=== PATIENT | female | born 1940 | race Caucasian/White ===

== ENCOUNTER 2017-12-29 13:15 | Inpatient (IN) | payer MEDICARE, MEDICAID ==
[~2017-12-29] VITALS: Ht 167.6 cm; Wt 75.5 kg
[2017-12-29] MEDS ORDERED: SODIUM CHLORIDE 0.9% 1,000 ML IV ONE ×2 (13:21→21:30)
[2017-12-29] MEDS ORDERED: SODIUM CHLORIDE 0.9% 500 ML IVB ONE (13:21)
[2017-12-29] MEDS ORDERED: PROMETHAZINE HCL 25 MG/ML 1ML IV PRN (13:30)
[2017-12-29 15:31] LABS: Basophils # (auto) 0.1 uL; Basophils % (auto) 0.6 % (0.0-2.0); Eosinophils # (auto) 0 uL; Hematocrit 43.5 % (36.0-46.0); Hemoglobin 14.6 g/dL (12.2-16.2); Lymphocytes # (auto) 0.4 uL; Lymphocytes % (auto) 2.8 % (10.0-50.0); Mean Corpuscular Hemoglobin 30.2 pg (28.0-32.0); Mean Corpuscular Hgb Conc. 33.6 g/dL (32.0-36.0); Mean Corpuscular Volume 89.9 fL (80.0-100.0); Monocytes # (auto) 1.2 uL; Monocytes % (auto) 7.7 % (0.0-12.0); Neutrophils # (auto) 13.3 uL; Neutrophils % (auto) 88.9 % (37.0-80.0); Nucleated Red Blood Cells % 0.1 %; Platelet Count (auto) 366 10^3/uL (140-450); Red Blood Cells 4.84 10^6/uL (4.0-5.20)
[2017-12-29 15:54] LABS: Albumin 3.3 g/dL (3.4-5.0); BUN/Creatinine Ratio 28.6; Bilirubin, Total 5.7 mg/dL (0.2-1.0); Calcium 9.4 mg/dL (8.5-10.1); Magnesium 2.7 mg/dL (1.6-2.6); Potassium 4.2 mmol/L (3.5-5.1); Total Protein 7.6 g/dL (6.4-8.2)
[2017-12-29 16:30] LABS: Urine Bacteria NONE SEEN /hpf (None Seen); Urine Blood Negative /uL (Negative); Urine Mucus FEW (None Seen); Urine Specific Gravity 1.024 (1.001-1.035); Urine WBC 4 /hpf (0 - 5)
[2017-12-29] MEDS ORDERED: cefTRIAXone 1GM/10ml IVPUSH 10 ML IV ONE (18:00)
[2017-12-29] MEDS ORDERED: MORPHINE SULF INJ 2 MG/ML SYRINGE 1ML IV ONE (18:45)
[2017-12-29] MEDS ORDERED: PROMETHAZINE HCL 25 MG/ML 1ML IV ONE (18:45)
[2017-12-29] MEDS ORDERED: ONDANSETRON HCL 4 MG/2 ML VIAL IV PRN (21:30)
[2017-12-29] MEDS ORDERED: MORPHINE SULF INJ 2 MG/ML SYRINGE 1ML IV PRN (21:30)
[2017-12-29 22:55] VITALS: BP 115/54
[2017-12-30] MEDS ORDERED: TEMAZEPAM 15 MG CAP PO PRN (00:45)
[2017-12-30 05:07] VITALS: BP 96/54
[2017-12-30] MEDS: IBUPROFEN 400 MG TAB PO PRN ×2 (05:53→22:01)
[2017-12-30 08:44] LABS: Basophils # (auto) 0.1 uL; Basophils % (auto) 0.9 % (0.0-2.0); Eosinophils # (auto) 0.1 uL; Eosinophils % (auto) 0.7 % (0.0-7.0); Hematocrit 35.2 % (36.0-46.0); Hemoglobin 11.9 g/dL (12.2-16.2); Lymphocytes # (auto) 1.4 uL; Lymphocytes % (auto) 16.3 % (10.0-50.0); Mean Corpuscular Hemoglobin 30.5 pg (28.0-32.0); Mean Corpuscular Hgb Conc. 33.8 g/dL (32.0-36.0); Mean Corpuscular Volume 90.2 fL (80.0-100.0); Monocytes # (auto) 0.9 uL; Monocytes % (auto) 10.1 % (0.0-12.0); Neutrophils # (auto) 6.3 uL; Platelet Count (auto) 240 10^3/uL (140-450); Red Cell Distribution Width 14.9 % (11.8-14.3); White Blood Cell 8.8 10^3/uL (4.4-10.8)
[2017-12-30 09:00] VITALS: BP 128/56
[2017-12-30 09:07] LABS: Albumin 2.7 g/dL (3.4-5.0); BUN/Creatinine Ratio 35.9; Bilirubin, Total 4.5 mg/dL (0.2-1.0); Calcium 8.2 mg/dL (8.5-10.1); Potassium 3.3 mmol/L (3.5-5.1)
[2017-12-30] MEDS: PANTOPRAZOLE 40 MG/10 ML VIAL IV SCH (09:49)
[2017-12-30 12:30] VITALS: BP 112/65
[2017-12-30] MEDS: MEROPENEM 1gm/20ml IVPUSH 20 ML IV SCH ×2 (15:17→21:47)
[2017-12-30 17:17] VITALS: BP 127/61
[2017-12-30] MEDS ORDERED: cefTRIAXone 1GM/10ml IVPUSH 10 ML IV SCH (21:00)
[2017-12-30 22:00] VITALS: BP 128/64
[2017-12-31] MEDS ORDERED: CHOL20007 PO (00:09)
[2017-12-31] MEDS ORDERED: TRIA75TA55 PO (00:09)
[2017-12-31] MEDS ORDERED: OMEP20TA PO (00:09)
[2017-12-31] MEDS ORDERED: IBUP100S11 PO (00:11)
[2017-12-31 05:00] VITALS: BP 101/59
[2017-12-31 08:30] VITALS: BP 120/69
[2017-12-31] MEDS: PANTOPRAZOLE 40 MG/10 ML VIAL IV SCH (09:35)
[2017-12-31] MEDS: MEROPENEM 1gm/20ml IVPUSH 20 ML IV SCH ×2 (09:35→22:04)
[2017-12-31 12:30] VITALS: BP 118/65
[2017-12-31 16:29] VITALS: BP 117/60
[2017-12-31] MEDS: IBUPROFEN 400 MG TAB PO PRN (18:05)
[2017-12-31 22:00] VITALS: BP 116/59
[2018-01-01] MEDS: IBUPROFEN 400 MG TAB PO PRN ×2 (00:07→15:05)
[2018-01-01 05:00] VITALS: BP 110/53
[2018-01-01 07:28] LABS: Basophils # (auto) 0.1 uL; Basophils % (auto) 1.5 % (0.0-2.0); Eosinophils # (auto) 0.1 uL; Eosinophils % (auto) 3.1 % (0.0-7.0); Hematocrit 34.2 % (36.0-46.0); Hemoglobin 11.5 g/dL (12.2-16.2); Lymphocytes # (auto) 1.9 uL; Lymphocytes % (auto) 42.2 % (10.0-50.0); Mean Corpuscular Hemoglobin 30.5 pg (28.0-32.0); Mean Corpuscular Hgb Conc. 33.7 g/dL (32.0-36.0); Mean Corpuscular Volume 90.4 fL (80.0-100.0); Monocytes # (auto) 0.5 uL; Monocytes % (auto) 10.6 % (0.0-12.0); Neutrophils # (auto) 1.9 uL; Neutrophils % (auto) 42.6 % (37.0-80.0); Nucleated Red Blood Cells % 0.2 %; Platelet Count (auto) 259 10^3/uL (140-450); Red Blood Cells 3.79 10^6/uL (4.0-5.20); Red Cell Distribution Width 15.1 % (11.8-14.3); White Blood Cell 4.5 10^3/uL (4.4-10.8)
[2018-01-01 07:55] LABS: Albumin 2.4 g/dL (3.4-5.0); BUN/Creatinine Ratio 31.5; Bilirubin, Total 1.3 mg/dL (0.2-1.0); Calcium 8.2 mg/dL (8.5-10.1); Potassium 3.5 mmol/L (3.5-5.1); Total Protein 5.6 g/dL (6.4-8.2)
[2018-01-01 09:00] VITALS: BP 125/66
[2018-01-01] MEDS: MEROPENEM 1gm/20ml IVPUSH 20 ML IV SCH (10:18)
[2018-01-01] MEDS: PANTOPRAZOLE 40 MG/10 ML VIAL IV SCH (10:18)
[2018-01-01] MEDS ORDERED: LACTULOSE 20Gm/30ML SOLN PO ONE (11:00)
[2018-01-01 13:00] VITALS: BP 130/70
[2018-01-01 17:00] VITALS: BP 124/48
== END 2018-01-01 18:00 | disposition home or self-care (01) | DRG 720 ==
LOC: EDUNIT# 13:15 → EDBD 13:15 → ER 13:25 → OVERFLOW 13:26 → EAST 22:55
PROVIDERS: ADMIT Nurse Practitioner Family; ATTEND Family Medicine
DX: A41.9 Sepsis, unspecified organism (principal); E11.65 Type 2 diabetes mellitus with hyperglycemia; K76.89 Other specified diseases of liver; E87.1 Hypo-osmolality and hyponatremia; N39.0 Urinary tract infection, site not specified; Z88.3 Allergy status to other anti-infective agents; E44.1 Mild protein-calorie malnutrition; Z88.0 Allergy status to penicillin; Z88.2 Allergy status to sulfonamides; Z88.8 Allergy status to other drugs, medicaments and biological substances; K21.9 Gastro-esophageal reflux disease without esophagitis; Z90.49 Acquired absence of other specified parts of digestive tract; E89.0 Postprocedural hypothyroidism; K86.9 Disease of pancreas, unspecified; N28.1 Cyst of kidney, acquired; N83.8 Other noninflammatory disorders of ovary, fallopian tube and broad ligament; Z87.891 Personal history of nicotine dependence; Z68.26 Body mass index [BMI] 26.0-26.9, adult
CPT/HCPCS: 36415; 71046; 74176; 76856; 80053; 81001; 82378; 83036; 83690; 83735; 84443; 85025; 86301; 87040; 87077; 87086; 87186; 93005; 96361; 96374; 96375; 96379; C9113; J0696

== ENCOUNTER 2018-07-15 15:27 | Inpatient (IN) | payer MEDICARE, MEDICAID ==
[~2018-07-15] VITALS: Ht 170.2 cm; Wt 54.4 kg
[~2018-07-15 15:27] MED LIST: CHOL20007 PO; DIPH50TA9 PO; DOCU-94 PO; HYDR-4683 PO; HYDR2.5C39 RE; IBUP100S11 PO; METO5TAB2 PO; OMEP20TA PO; ONDA4TAB5 PO; POM PO; SIME80CH6 PO; TRIA75TA55 PO
[2018-07-15] MEDS ORDERED: SODIUM CHLORIDE 0.9% 500 ML IVB ONE (15:39)
[2018-07-15 16:49] LABS: Basophils # (auto) 0.1 uL; Basophils % (auto) 0.7 % (0.0-2.0); Eosinophils # (auto) 0 uL; Eosinophils % (auto) 0.1 % (0.0-7.0); Hematocrit 37.5 % (36.0-46.0); Hemoglobin 12.7 g/dL (12.2-16.2); Lymphocytes % (auto) 11.3 % (10.0-50.0); Mean Corpuscular Hemoglobin 28.9 pg (28.0-32.0); Mean Corpuscular Hgb Conc. 33.9 g/dL (32.0-36.0); Mean Corpuscular Volume 85.2 fL (80.0-100.0); Monocytes # (auto) 0.7 uL; Monocytes % (auto) 7.2 % (0.0-12.0); Neutrophils # (auto) 7.5 uL; Neutrophils % (auto) 80.7 % (37.0-80.0); Nucleated Red Blood Cells % 0.1 %; Platelet Count (auto) 241 10^3/uL (140-450); Red Cell Distribution Width 15.5 % (11.8-14.3); White Blood Cell 9.2 10^3/uL (4.4-10.8)
[2018-07-15 17:05] LABS: Albumin 2.8 g/dL (3.4-5.0); Anion Gap 18 (5-15); Blood Urea Nitrogen 20 mg/dL (7-18); Calcium 8.3 mg/dL (8.5-10.1); Carbon Dioxide 25 mmol/L (21-32); Chloride 98 mmol/L (98-107); Glucose 156 mg/dL (74-106); Lipase 41 U/L (73-393); Magnesium 2.3 mg/dL (1.6-2.6); Sodium 141 mmol/L (136-145)
[2018-07-15 17:07] LABS: Alanine Aminotransferase 9 U/L (13-56); Amylase 11 U/L (25-115); Aspartate Aminotransferase 16 U/L (15-37); BUN/Creatinine Ratio 30.3; GFR African American 111 mL/min; GFR Non-African American 92 mL/min
[2018-07-15 17:10] LABS: Alkaline Phosphatase 101 U/L (45-117); Bilirubin, Total 1.2 mg/dL (0.2-1.0); Total Protein 5.8 g/dL (6.4-8.2)
[2018-07-15 17:20] LABS: Potassium 2.9 mmol/L (3.5-5.1)
[2018-07-15] MEDS ORDERED: POTASSIUM CHL 20MEQ/100ML 100 ML IV ONE ×2 (18:30→21:00)
[2018-07-15] MEDS ORDERED: ONDANSETRON HCL 4 MG/2 ML VIAL ONE (20:37)
[2018-07-15] MEDS ORDERED: ONDANSETRON HCL 4 MG/2 ML VIAL IV ONE (20:45)
[2018-07-15] MEDS ORDERED: ONDANSETRON HCL 4 MG/2 ML VIAL IV PRN (21:00)
[2018-07-15] MEDS ORDERED: ACETAMINOPHEN 500 MG TAB PO PRN (21:00)
[2018-07-15] MEDS ORDERED: LORazepam 2MG/ML-1ML VIAL IV PRN (21:30)
[2018-07-15] MEDS: SODIUM CHLORIDE 0.9% 1,000 ML IV SCH (22:30)
[2018-07-15] MEDS: MORPHINE SULFATE 4 MG/ML SYR/VIAL IV PRN (22:44)
[2018-07-16] MEDS ORDERED: PROMETHAZINE HCL 25 MG/ML 1ML ONE (00:32)
[2018-07-16] MEDS: PROMETHAZINE HCL 25 MG/ML 1ML IV PRN ×3 (04:19→17:47)
[2018-07-16 05:50] LABS: Basophils # (auto) 0 uL; Basophils % (auto) 0.7 % (0.0-2.0); Eosinophils # (auto) 0 uL; Eosinophils % (auto) 0.2 % (0.0-7.0); Hematocrit 30.9 % (36.0-46.0); Hemoglobin 10.8 g/dL (12.2-16.2); Lymphocytes % (auto) 14.5 % (10.0-50.0); Mean Corpuscular Hemoglobin 29.5 pg (28.0-32.0); Mean Corpuscular Hgb Conc. 34.8 g/dL (32.0-36.0); Mean Corpuscular Volume 84.8 fL (80.0-100.0); Monocytes # (auto) 0.6 uL; Monocytes % (auto) 8.1 % (0.0-12.0); Neutrophils # (auto) 5.2 uL; Neutrophils % (auto) 76.5 % (37.0-80.0); Nucleated Red Blood Cells % 0.1 %; Platelet Count (auto) 188 10^3/uL (140-450); Red Blood Cells 3.64 10^6/uL (4.0-5.20); Red Cell Distribution Width 15.4 % (11.8-14.3); White Blood Cell 6.9 10^3/uL (4.4-10.8)
[2018-07-16 05:58] LABS: BUN/Creatinine Ratio 36.4; Calcium 7.8 mg/dL (8.5-10.1)
[2018-07-16 06:00] LABS: Potassium 2.9 mmol/L (3.5-5.1)
[2018-07-16] MEDS: SODIUM CHLORIDE 0.9% 1,000 ML IV SCH ×2 (07:24→17:00)
[2018-07-16] MEDS: PANTOPRAZOLE 40 MG/10 ML VIAL IV SCH (10:05)
[2018-07-16] MEDS: MORPHINE SULFATE 4 MG/ML SYR/VIAL IV PRN ×2 (10:06→17:47)
[2018-07-16] MEDS ORDERED: POTASSIUM CHLORIDE 20 MEQ, LIDOCAINE 1% (LOCAL ANESTH.) 2 ML in SODIUM CHL 0.9% 100 ML IV ONE (16:45)
[2018-07-16 16:48] LABS: Urine Bacteria NONE SEEN /hpf (None Seen); Urine Blood Negative /uL (Negative); Urine Mucus FEW (None Seen); Urine Specific Gravity 1.017 (1.001-1.035); Urine WBC 3 /hpf (0 - 5)
[2018-07-16] MEDS: methylPREDNISolone SOD SUCC 40 MG/ML VL IV SCH (18:26)
--- NOTE | 2018-07-16 20:30 | NUR ---
OPENING NOTES RECEIVED REPORT FROM ER NURSE. PT IS AWAKE AND ORIENTATED X 4 WITH NO S/S OF DISTRESS BUT PT IS NAUSEATED. IS AT BS. BED IS IN LOWEST POSITION WITH SIDE RAILS UP X 2 AND BED BRAKES ARE ON. CALL LIGHT IS WITHIN REACH. WILL CONTINUE TO MONITOR Q 1HR.
--- NOTE | 2018-07-16 20:40 | NUR ---
MED REC UNABLE TO OBTAIN ACCURATE MED REC AT THIS TIME, PATIENT DOES NOT REMEMBER HER MEDICATION NOR DOES . ADVISED TO BRING IN A LIST OF MEDICATION TAKEN AT HOME. VERBALIZED UNDERSTANDING, WILL BRING IN TOMORROW. WILL ENDORSE TO DAY SHIFT.
[2018-07-16 22:00] VITALS: BP 134/47
[2018-07-17] MEDS: methylPREDNISolone SOD SUCC 40 MG/ML VL IV SCH ×4 (00:51→18:36)
[2018-07-17] MEDS: SODIUM CHLORIDE 0.9% 1,000 ML IV SCH ×3 (02:54→20:27)
[2018-07-17 05:00] VITALS: BP 135/70
--- NOTE | 2018-07-17 07:29 | NUR ---
CLOSING NOTES ENDORSED CARE TO DAY SHIFT RNBIRDIE.
[2018-07-17 07:35] LABS: Basophils # (auto) 0 uL; Basophils % (auto) 0.2 % (0.0-2.0); Eosinophils # (auto) 0 uL; Hematocrit 30.8 % (36.0-46.0); Hemoglobin 10.5 g/dL (12.2-16.2); Lymphocytes # (auto) 0.3 uL; Lymphocytes % (auto) 7.8 % (10.0-50.0); Mean Corpuscular Hgb Conc. 34.1 g/dL (32.0-36.0); Mean Corpuscular Volume 84.9 fL (80.0-100.0); Monocytes # (auto) 0 uL; Monocytes % (auto) 1.2 % (0.0-12.0); Neutrophils # (auto) 3.5 uL; Neutrophils % (auto) 90.8 % (37.0-80.0); Nucleated Red Blood Cells % 0.1 %; Platelet Count (auto) 151 10^3/uL (140-450); Red Blood Cells 3.62 10^6/uL (4.0-5.20); Red Cell Distribution Width 15.2 % (11.8-14.3); White Blood Cell 3.9 10^3/uL (4.4-10.8)
[2018-07-17 07:53] LABS: BUN/Creatinine Ratio 31.3; Calcium 7.4 mg/dL (8.5-10.1); Potassium 3.2 mmol/L (3.5-5.1)
--- NOTE | 2018-07-17 07:55 | NUR ---
Opening Shift Note Assumed care of patient, comfortably sleeping, breath sounds even and unlabored. No S/S of distress/SOB. Bed at lowest position and call light within reach. Instructed on POC and to call for assist PRN, will continue to monitor for changes Q1hr and PRN.
[2018-07-17 08:00] VITALS: BP 132/68
[2018-07-17 09:00] VITALS: BP 132/68
[2018-07-17] MEDS ORDERED: POTASSIUM CHLORIDE 20 MEQ, LIDOCAINE 1% (LOCAL ANESTH.) 2 ML in SODIUM CHL 0.9% 100 ML IV ONE (10:45)
[2018-07-17] MEDS: PANTOPRAZOLE 40 MG/10 ML VIAL IV SCH (10:52)
[2018-07-17] MEDS: MORPHINE SULFATE 4 MG/ML SYR/VIAL IV PRN ×3 (11:30→22:10)
--- NOTE | 2018-07-17 11:43 | NUR ---
Nutrition Assessment/consult Notes Please see attached link for complete assessment Est. Needs IBW [id number] kcal (25-30 kcal/kgIBW), 61-73 gms pro (1.0-1.2 gms/kgBW). Will continue to monitor pertinent labs and reassess nutrient need prn Addendum: 07/17/18 at [address] Amended: Links added.
[2018-07-17 13:06] VITALS: BP 142/76
[2018-07-17] MEDS: ONDANSETRON ODT 4 MG TAB PO SCH ×3 (14:13→20:26)
[2018-07-17] MEDS: METOCLOPRAMIDE HCL 10 MG TAB PO SCH ×3 (14:14→20:26)
--- NOTE | 2018-07-17 14:41 | NUR ---
ORDER AND CLINICALS FAXED TO [facility] FOR REVIEW.
--- NOTE | 2018-07-17 16:43 | NUR ---
assessment Patient is a 78 year old female who is alert and oriented. Patients cognitive abilities are intact. Prior to admission patient lived home with her Miguel Ángel and functioned with assistance. Per patient she will return home to her prior living arrangements post discharge and family will transport her home. Patient has a fww, cane, and wheelchair for home use. Patients PCP is Dr Estevez. I informed patient she has a right to speak to a medical social consultant regarding all care. I informed patient she has a right to participate in any and all discharge planning. Patient is aware of visiting hours on the hospital floor. I informed patient she has a right to privacy. Patient does not have a POA and advanced directive. I have offered patient information on POA and advanced directives. I informed the patient the advantages and benefits of having an Advanced Directive. Patient verbalized understanding and agreed to discharge plan. Per consult hospice evaluation. Patient and her Miguel Ángel have refused hospice and want home health. Per consult PT vitals, and med management. Patient has been given a list of medicare providers. Patient has no preference on who provides service. MD order has been sent to [facility]. Per Kennedy rebollar [facility] service will start within 48 hours of discharge. Addendum: 07/19/18 at 1648 by Monserrat CHAKRABORTY Amended: Links added.
[2018-07-17 17:00] VITALS: BP 130/68
--- NOTE | 2018-07-17 17:00 | NUR ---
Patient is requesting Zofran and Reglan medications IV. Patient states " i cant keep them down" Will page .
--- NOTE | 2018-07-17 18:51 | NUR ---
closing note: Patient is comfortably resting in bed, no c/o pain, SOB. No s/s of distress. Bed at lowest position and call light within reach. Family at bedside. Will endorse care to NOC RN.
--- NOTE | 2018-07-17 20:10 | NUR ---
RECEIVED PATIENT IN BED, AAOX4. NO DISTRESS NOTED. AFEBRILE. NAUSEA/VOMITING NOTED. IS IN THE ROOM. WITH MILD BLE WEAKNESS NOTED. POCS DISCUSSED WITH PATIENT AND SHOWED UNDERSTANDING. BED KEPT ON LOWEST POSITION. SIDE RAILS UP. CALL LIGHT/TABLE IN REACH. KEPT COMFORTABLE.
[2018-07-17] MEDS: PROMETHAZINE HCL 25 MG/ML 1ML IV PRN (20:45)
[2018-07-17 21:30] VITALS: BP 136/67
[2018-07-17] MEDS: ENSURE CLEAR Mixed Berry 8oz Carton PO SCH (21:30)
[2018-07-18 05:00] VITALS: BP 139/68
[2018-07-18] MEDS: ENSURE CLEAR Mixed Berry 8oz Carton PO SCH ×4 (05:26→21:39)
[2018-07-18] MEDS: methylPREDNISolone SOD SUCC 40 MG/ML VL IV SCH ×4 (05:26→20:07)
[2018-07-18] MEDS: METOCLOPRAMIDE HCL 10 MG TAB PO SCH ×4 (05:27→21:40)
[2018-07-18] MEDS: ONDANSETRON ODT 4 MG TAB PO SCH ×4 (05:27→21:41)
[2018-07-18] MEDS: MORPHINE SULFATE 4 MG/ML SYR/VIAL IV PRN ×2 (06:01→10:22)
[2018-07-18] MEDS: PROMETHAZINE HCL 25 MG/ML 1ML IV PRN ×2 (06:01→10:23)
--- NOTE | 2018-07-18 06:46 | NUR ---
ON BED, ASLEEP. STABLE. NO DISTRESS NOTED. FOR MORE CARE AND MANAGEMENT.
[2018-07-18 07:10] LABS: Basophils # (auto) 0 uL; Basophils % (auto) 0.1 % (0.0-2.0); Eosinophils # (auto) 0 uL; Hematocrit 30.7 % (36.0-46.0); Hemoglobin 10.5 g/dL (12.2-16.2); Lymphocytes # (auto) 0.6 uL; Lymphocytes % (auto) 9.1 % (10.0-50.0); Mean Corpuscular Hemoglobin 28.9 pg (28.0-32.0); Mean Corpuscular Hgb Conc. 34.3 g/dL (32.0-36.0); Mean Corpuscular Volume 84.2 fL (80.0-100.0); Monocytes # (auto) 0.2 uL; Monocytes % (auto) 2.6 % (0.0-12.0); Neutrophils # (auto) 5.7 uL; Neutrophils % (auto) 88.2 % (37.0-80.0); Nucleated Red Blood Cells % 0.2 %; Platelet Count (auto) 171 10^3/uL (140-450); Red Blood Cells 3.64 10^6/uL (4.0-5.20); Red Cell Distribution Width 14.7 % (11.8-14.3); White Blood Cell 6.5 10^3/uL (4.4-10.8)
--- NOTE | 2018-07-18 07:20 | NUR ---
Opening Shift Note Assumed care of patient, awake and alert. No S/S of distress/SOB. Reported abdominal pain. Instructed on POC-continue IV hydration, pain and nausea management. Patient informed to call for assist PRN, will continue to monitor for changes Q1hr and PRN.
[2018-07-18 07:45] LABS: Calcium 7.6 mg/dL (8.5-10.1); Potassium 3.2 mmol/L (3.5-5.1)
[2018-07-18 07:48] LABS: BUN/Creatinine Ratio 36.4
[2018-07-18] MEDS: PANTOPRAZOLE 40 MG/10 ML VIAL IV SCH (10:23)
[2018-07-18 13:00] VITALS: BP 131/73
--- NOTE | 2018-07-18 13:10 | NUR ---
chaperoned Dr. Carney into pts room
[2018-07-18] MEDS ORDERED: POTASSIUM CHLORIDE 40 MEQ, LIDOCAINE 1% (LOCAL ANESTH.) 4 ML in SODIUM CHL 0.9% 100 ML IV ONE (15:00)
[2018-07-18] MEDS: SODIUM CHLORIDE 0.9% 1,000 ML IV SCH ×2 (16:51→19:00)
[2018-07-18 17:00] VITALS: BP 120/74
--- NOTE | 2018-07-18 17:15 | NUR ---
Spoke with Dr. Lynn regarding patient not really taking in even the clear liquids, asked for IV nutrition. MD gave an order to start patient on PPN per pharmacy.
[2018-07-18] MEDS ORDERED: PPN PER PHARMACY 0 ML IV SCH (17:30)
[2018-07-18] MEDS ORDERED: DEXTROSE (50%) 50ML SYRG IV SCH (20:00)
[2018-07-18] MEDS: CLINIMIX PER PHARMACY IV NR ×2 (21:38)
[2018-07-18] MEDS: ACCU-CHEK COMFORT CURVE STRIP VI SCH (21:39)
[2018-07-18] MEDS: InsuLIN REG 1unit/0.01ml Soln (100units/ml) SC SCH (21:40)
--- NOTE | 2018-07-18 22:05 | NUR ---
Clinimix started late because potassium drip was not completed.
[2018-07-18 22:09] VITALS: BP 150/75
[2018-07-19] MEDS: PROMETHAZINE HCL 25 MG/ML 1ML IV PRN ×3 (00:46→16:16)
[2018-07-19] MEDS: ACCU-CHEK COMFORT CURVE STRIP VI SCH ×4 (00:46→18:09)
[2018-07-19] MEDS: methylPREDNISolone SOD SUCC 40 MG/ML VL IV SCH ×4 (00:46→18:08)
[2018-07-19] MEDS: InsuLIN REG 1unit/0.01ml Soln (100units/ml) SC SCH ×4 (00:47→18:09)
[2018-07-19] MEDS: MORPHINE SULFATE 4 MG/ML SYR/VIAL IV PRN ×3 (02:15→16:17)
[2018-07-19] MEDS: SODIUM CHLORIDE 0.9% 1,000 ML IV SCH ×2 (04:58→16:17)
[2018-07-19 05:19] VITALS: BP 135/69
[2018-07-19] MEDS: ENSURE CLEAR Mixed Berry 8oz Carton PO SCH ×4 (06:00→22:00)
[2018-07-19 06:43] LABS: Calcium 7.6 mg/dL (8.5-10.1); Magnesium 1.9 mg/dL (1.6-2.6); Potassium 3.3 mmol/L (3.5-5.1)
[2018-07-19] MEDS: ONDANSETRON ODT 4 MG TAB PO SCH ×4 (06:48→22:00)
[2018-07-19] MEDS: METOCLOPRAMIDE HCL 10 MG TAB PO SCH ×4 (06:48→22:00)
[2018-07-19 06:50] LABS: Albumin 2.4 g/dL (3.4-5.0); BUN/Creatinine Ratio 36.6; Bilirubin, Total 1.3 mg/dL (0.2-1.0); Total Protein 4.7 g/dL (6.4-8.2)
--- NOTE | 2018-07-19 07:45 | NUR ---
RECEIVED REPORT AND ASSUME CARE OF PT. PT RESTING IN BED. NO S/S ACUTE DISTRESS NOTED. BED AT LOWEST POSITION. CALL LIGHT AND BELONGINGS WITHIN REACH. WILL CONT TO MONITOR.
[2018-07-19 08:50] VITALS: BP 120/85
[2018-07-19] MEDS ORDERED: POTASSIUM PHOSPHATE 44 MEQ in D5W 5% 250 ML IV ONE (09:15)
[2018-07-19] MEDS ORDERED: POTASSIUM PHOSPHATE 44 MEQ in SODIUM CHL 0.9% 250 ML IV ONE (09:15)
[2018-07-19] MEDS: PANTOPRAZOLE 40 MG/10 ML VIAL IV SCH (10:57)
--- NOTE | 2018-07-19 11:56 | NUR ---
Nutrition Consult and Follow-up Notes Wt.: 48.1 kg as of yesterday. Pt's with spouse at bedside, still having severe abdominal pain, nausea and vomiting (2x) earlier, unable to tolerate oral diet, per pt. Per spouse, pt most likely lost so much weight, unable to eat for last 10 days [employer] d/t current medical condition (CA and refused to undergo chemo), per spouse. Pt's currently on Clear Liquid diet with Ensure Clear 1 carton QID, has poor PO intake aeb <30% ave. consumed meals (x5) in last 2.5 days. Encouraged to increase food intake through small frequent meals as tolerated. Pt started on Clinimix @ 42 ml/hr providing 510 kcal, 340 NPCs and 42.5 gms pro. Pt with inadequate PN support d/t low initiation rate delivery of diluted formula aeb current PN infusion meets 28% to 33% of est caloric needs and 46% to 58% of est protein needs. Discussed importance/benefits of PN support while on Clear Liquid diet r/t current medical condition and they verbalized understanding. Noted pt's to receive tonight another TPN @ 50 ml/hr to provide 740 kcal, 50 gms pro, 540 NPCs and 27% Fat. Est. Needs IBW [id number] kcal (25-30 kcal/kgIBW), 73-92 gms pro (1.0-1.5 gms/kgBW reassessed d/t severe hypoalbuminemia,CA). Will continue to monitor pertinent labs and reassess nutrient need prn Labs: Gluc 217 H, Ca 7.6 L, K 3.3 L, Cr 0.41 L, Phos 1.0 L, Tot juma 1.3 H, Tpro 4.7 L, Alb 2.4 L,Prealb 10.0 L, Trig 105 wnl. Skin: Guido scale 18, mod risk, skin intact per manager of marketing. GI: Pt had 1 BM this morning per manager of marketing. PES: Increased nutrient needs r/t current/chronic medical condition aeb undertwt, losing wt on CLD, with cancer, on PN support Altered nutrition related lab values r/t current/chronic medical condition aeb hyperglycemia, mod hypoalb, hyperbil, hypocalcemia Will continue to monitor PO intake, PN tolerance, skin status, pertinent labs and weight trend. F/u in 2 to 3 days. Rec.: 1.) If pt remains on Clear Liquid diet with poor PO intake, continue PN support with gradual increase on calories and protein to meet at least 75% of est nutrient needs. 2.) Continue close supervision and feeding assistance prn during meals. 3.) Advance gradually oral diet when medically appropriate. 4.) Refer pt to CDE/RD for further nutrition education and weight monitoring upon discharge. 5.) Continue current plan of care. Thank you for this consult.
--- NOTE | 2018-07-19 12:31 | NUR ---
CHAPERONED DR. CHEN INTO PTS ROOM
[2018-07-19] MEDS: CLINIMIX PER PHARMACY IV NR ×2 (19:49)
[2018-07-19] MEDS ORDERED: PPN PER PHARMACY IV NR ×11 (20:00)
[2018-07-19 21:43] VITALS: BP 121/72
[2018-07-20] MEDS: methylPREDNISolone SOD SUCC 40 MG/ML VL IV SCH ×5 (00:37→23:57)
[2018-07-20] MEDS: MORPHINE SULFATE 4 MG/ML SYR/VIAL IV PRN ×4 (00:37→21:37)
[2018-07-20] MEDS: InsuLIN REG 1unit/0.01ml Soln (100units/ml) SC SCH ×4 (00:38→17:52)
[2018-07-20] MEDS: ACCU-CHEK COMFORT CURVE STRIP VI SCH ×5 (00:38→23:57)
[2018-07-20] MEDS: SODIUM CHLORIDE 0.9% 1,000 ML IV SCH ×2 (03:03→12:19)
--- NOTE | 2018-07-20 04:00 | NUR ---
IV removal from [facility] IV DC'd with clean sterile technique, catheter fully intact. Pressure dressing applied to site. Patient tolerated well.
--- NOTE | 2018-07-20 04:46 | NUR ---
IV insertion IV access obtained, via clean sterile technique by inserting 22 gauge catheter at right hand after 2 attempt(s). IV secured properly. No trauma to site. Patient tolerated well.
[2018-07-20 05:28] VITALS: BP 120/73
[2018-07-20] MEDS: ENSURE CLEAR Mixed Berry 8oz Carton PO SCH ×4 (06:00→21:38)
[2018-07-20 06:31] LABS: Albumin 1.8 g/dL (3.4-5.0); Calcium 7.7 mg/dL (8.5-10.1); Magnesium 2.1 mg/dL (1.6-2.6); Potassium 3.9 mmol/L (3.5-5.1)
[2018-07-20 06:36] LABS: BUN/Creatinine Ratio 36.2; Bilirubin, Total 1.8 mg/dL (0.2-1.0); Phosphorus 1.5 mg/dL (2.5-4.90); Total Protein 4.9 g/dL (6.4-8.2)
[2018-07-20] MEDS: ONDANSETRON ODT 4 MG TAB PO SCH ×4 (07:00→21:38)
[2018-07-20] MEDS: METOCLOPRAMIDE HCL 10 MG TAB PO SCH ×4 (07:00→21:38)
--- NOTE | 2018-07-20 07:37 | NUR ---
RECEIVED REPORT AND ASSUME CARE OF PT. A/OX4. DENIED S/S ACUTE DISTRESS. DENIED CP/SOB/N/V/DIZZINESS AT THIS TIME. UPDATE PT WITH POC. BED AT LOWEST POSITION. CALL LIGHT AND BELONGINGS WITHIN REACH. WILL CONT TO MONITOR.
[2018-07-20] MEDS: PROMETHAZINE HCL 25 MG/ML 1ML IV PRN ×3 (08:29→21:37)
[2018-07-20] MEDS: PANTOPRAZOLE 40 MG/10 ML VIAL IV SCH (08:29)
[2018-07-20 08:34] VITALS: BP 129/66
[2018-07-20 13:00] VITALS: BP 107/65
[2018-07-20] MEDS ORDERED: SODIUM PHOSPHATES 40 MEQ in D5W 5% 250 ML IV ONE (13:15)
[2018-07-20 16:44] VITALS: BP 102/59
--- NOTE | 2018-07-20 19:23 | NUR ---
PT RESTING IN BED. NO S/S ACUTE DISTRESS NOTED. ENDORSED CARE TO NIGHT NURSE.
--- NOTE | 2018-07-20 19:35 | NUR ---
Opening Shift Note Assumed care of patient, awake and alert. No S/S of distress/SOB or pain. Family at bedside. Bed locked in lowest position, side rails upx2, call light within reach. Instructed on POC and to call for assist PRN, will continue to monitor for changes Q1hr and PRN.
[2018-07-20] MEDS ORDERED: PPN PER PHARMACY IV NR ×11 (20:00)
[2018-07-20 22:00] VITALS: BP 103/58
--- NOTE | 2018-07-21 04:28 | NUR ---
Endorsed care to Summer RN. Patient asleep at this time with no s/s of distress.
--- NOTE | 2018-07-21 04:30 | NUR ---
Assumed care of patient. Patient is resting in bed with eyes closed. No signs or symptoms of distress noted at this time. Will continue to monitor Q1 hour and PRN.
[2018-07-21 05:00] VITALS: BP 103/48
[2018-07-21] MEDS: ENSURE CLEAR Mixed Berry 8oz Carton PO SCH ×4 (06:00→21:42)
[2018-07-21] MEDS: ACCU-CHEK COMFORT CURVE STRIP VI SCH ×4 (06:08→23:46)
[2018-07-21] MEDS: methylPREDNISolone SOD SUCC 40 MG/ML VL IV SCH ×4 (06:08→23:37)
[2018-07-21] MEDS: InsuLIN REG 1unit/0.01ml Soln (100units/ml) SC SCH ×5 (06:16→23:46)
[2018-07-21] MEDS: ONDANSETRON ODT 4 MG TAB PO SCH ×5 (06:19→21:42)
[2018-07-21] MEDS: METOCLOPRAMIDE HCL 10 MG TAB PO SCH ×5 (06:19→21:42)
--- NOTE | 2018-07-21 07:30 | NUR ---
OPENING SHIFT NOTE ASSUMED CARE OF PATIENT, MANAGER OF BROADCAST CONTENT AT BEDSIDE TO DRAW MORNING LABS. PATIENT REPORTED ABDOMINAL PAIN 8/ NIGHT RN TO INITIATE PAIN MANAGEMENT. LEFT ARM SWOLLEN, PER REPORT THIS IS A CHRONIC ISSUE, ARM IS NONTENDER, SMALL SKIN TEAR TO THE LATERAL ASPECT REMAINS OPEN TO AIR, CLEAN AND DRY. SAFETY PRECAUTIONS IN PLACE, CALL LIGHT WITHIN REACH. DISCUSSED POC AND PATIENT WOULD LIKE TO ADVANCE DIET TODAY STATED " I ACTUALLY HAVE AN APPETITE!" WILL CONTINUE TO MONITOR
[2018-07-21] MEDS: PROMETHAZINE HCL 25 MG/ML 1ML IV PRN ×3 (07:44→17:39)
[2018-07-21] MEDS: MORPHINE SULFATE 4 MG/ML SYR/VIAL IV PRN ×4 (07:44→22:31)
--- NOTE | 2018-07-21 07:45 | NUR ---
Closing Note Report given to day shift RN. No signs or symptoms of distress noted at this time.
[2018-07-21 08:17] LABS: Basophils # (auto) 0 uL; Eosinophils # (auto) 0 uL; Hematocrit 26.8 % (36.0-46.0); Hemoglobin 9.7 g/dL (12.2-16.2); Lymphocytes # (auto) 0.6 uL; Lymphocytes % (auto) 6.7 % (10.0-50.0); Mean Corpuscular Hemoglobin 29.8 pg (28.0-32.0); Mean Corpuscular Hgb Conc. 36.1 g/dL (32.0-36.0); Mean Corpuscular Volume 82.6 fL (80.0-100.0); Monocytes # (auto) 0.5 uL; Monocytes % (auto) 5.8 % (0.0-12.0); Neutrophils # (auto) 7.9 uL; Neutrophils % (auto) 87.5 % (37.0-80.0); Platelet Count (auto) 120 10^3/uL (140-450); Red Blood Cells 3.24 10^6/uL (4.0-5.20); Red Cell Distribution Width 14.6 % (11.8-14.3)
[2018-07-21 08:31] LABS: Potassium 3.3 mmol/L (3.5-5.1)
[2018-07-21 08:40] LABS: Albumin 2.3 g/dL (3.4-5.0); BUN/Creatinine Ratio 64.7; Bilirubin, Total 0.9 mg/dL (0.2-1.0); Calcium 7.6 mg/dL (8.5-10.1); Magnesium 2.1 mg/dL (1.6-2.6); Phosphorus 3.4 mg/dL (2.5-4.90); Total Protein 4.4 g/dL (6.4-8.2)
[2018-07-21 08:50] VITALS: BP 116/64
[2018-07-21] MEDS: PANTOPRAZOLE 40 MG/10 ML VIAL IV SCH (10:19)
[2018-07-21] MEDS: SODIUM CHLORIDE 0.9% 1,000 ML IV SCH ×3 (10:28→20:24)
--- NOTE | 2018-07-21 12:17 | NUR ---
Nutrition Follow-up Notes Wt.: 51.8 kg as of yesterday. Pt's asleep, no signs of distress noted earlier, currently on Clear Liquid diet with Ensure Clear 1 carton QID, has poor PO intake aeb <50% ave. consumed meals (x5) in last 2.5 days. Pt's currently on TPN@ 60 ml/hr providing 848 kcal, 648 NPCs and 60 gms pro. Pt with inadequate PN support d/t low initiation rate delivery of concentrated formula aeb current PN infusion meets 46% to 56% of est caloric needs and 65% to 72% of est protein needs. Est. Needs IBW [id number] kcal (25-30 kcal/kgIBW), 73-92 gms pro (1.0-1.5 gms/kgBW reassessed d/t severe hypoalbuminemia,CA). Will continue to monitor pertinent labs and reassess nutrient need prn Labs: Gluc 189 H, K 3.3 L, BUN 22 H, Cr 0.24 L, Ca 7.6 L, Tpro 4.4 L, Alb 2.3 L; Prealb 10.0 L, Trig 105 wnl. Skin: Guido scale 18, mod risk, skin intact per traffic recorder. GI: Pt had 1 BM 07/19/18 per traffic recorder. PES: Increased nutrient needs r/t current/chronic medical condition aeb undertwt, losing wt on CLD, with cancer, on PN support Altered nutrition related lab values r/t current/chronic medical condition aeb hyperglycemia, mod hypoalb, hyperbil, hypocalcemia Will continue to monitor PO intake, PN tolerance, skin status, pertinent labs and weight trend. F/u in 2 to 3 days. Rec.: 1.) If pt remains on Clear Liquid diet with poor PO intake, continue PN support with gradual increase on calories and protein to meet at least 75% of est nutrient needs. 2.) Continue close supervision and feeding assistance prn during meals. 3.) Advance gradually oral diet when medically appropriate. 4.) Refer pt to CDE/RD for further nutrition education and weight monitoring upon discharge. 5.) Continue current plan of care.
[2018-07-21 12:22] VITALS: BP 120/66
[2018-07-21] MEDS ORDERED: POTASSIUM EFFERVESENT TAB 25 MEQ PO ONE ×2 (12:30→14:15)
--- NOTE | 2018-07-21 12:45 | NUR ---
IV removal IV DC'd with clean sterile technique, catheter fully intact. Pressure dressing applied to site. Patient tolerated well.
--- NOTE | 2018-07-21 12:50 | NUR ---
IV insertion IV access obtained, via clean sterile technique by inserting gauge catheter at after attempt(s). IV secured properly. No trauma to site. Patient tolerated well. NOTE:
--- NOTE | 2018-07-21 14:20 | NUR ---
DR RIVER AT BEDSIDE
[2018-07-21 16:08] VITALS: BP 106/90
--- NOTE | 2018-07-21 16:18 | NUR ---
PATIENT REFUSED POTASSIUM EFFERVESCENT
--- NOTE | 2018-07-21 17:30 | NUR ---
faxed dietary patient did not receive a dinner tray.
--- NOTE | 2018-07-21 19:35 | NUR ---
Opening Shift Note Assumed care of patient, awake and alert. No S/S of distress/SOB or pain. Patient finished eating dinner with family at the bedside. Bed locked in lowest position, side rails upx2, call light within reach. Instructed on POC and to call for assist PRN, will continue to monitor for changes Q1hr and PRN.
[2018-07-21] MEDS ORDERED: PPN PER PHARMACY IV NR ×10 (20:00)
[2018-07-21 22:00] VITALS: BP 113/53
[2018-07-22 05:00] VITALS: BP 98/49
[2018-07-22] MEDS: methylPREDNISolone SOD SUCC 40 MG/ML VL IV SCH ×2 (05:46→12:00)
[2018-07-22] MEDS: MORPHINE SULFATE 4 MG/ML SYR/VIAL IV PRN (05:46)
[2018-07-22] MEDS: PROMETHAZINE HCL 25 MG/ML 1ML IV PRN (05:47)
[2018-07-22] MEDS: ENSURE CLEAR Mixed Berry 8oz Carton PO SCH (06:00)
[2018-07-22] MEDS: InsuLIN REG 1unit/0.01ml Soln (100units/ml) SC SCH ×2 (06:01→12:00)
[2018-07-22] MEDS: ACCU-CHEK COMFORT CURVE STRIP VI SCH ×2 (06:01→12:00)
[2018-07-22 06:14] LABS: Basophils # (auto) 0 uL; Basophils % (auto) 0.1 % (0.0-2.0); Eosinophils # (auto) 0 uL; Hematocrit 28.4 % (36.0-46.0); Hemoglobin 9.6 g/dL (12.2-16.2); Lymphocytes # (auto) 0.7 uL; Lymphocytes % (auto) 5.4 % (10.0-50.0); Mean Corpuscular Hemoglobin 28.1 pg (28.0-32.0); Mean Corpuscular Hgb Conc. 33.9 g/dL (32.0-36.0); Mean Corpuscular Volume 82.9 fL (80.0-100.0); Monocytes # (auto) 0.7 uL; Monocytes % (auto) 5.4 % (0.0-12.0); Neutrophils # (auto) 11.5 uL; Neutrophils % (auto) 89.1 % (37.0-80.0); Platelet Count (auto) 127 10^3/uL (140-450); Red Blood Cells 3.42 10^6/uL (4.0-5.20); Red Cell Distribution Width 14.6 % (11.8-14.3); White Blood Cell 12.9 10^3/uL (4.4-10.8)
[2018-07-22] MEDS: ONDANSETRON ODT 4 MG TAB PO SCH (06:51)
[2018-07-22] MEDS: METOCLOPRAMIDE HCL 10 MG TAB PO SCH ×2 (06:51→13:34)
[2018-07-22 08:41] LABS: Albumin 2.2 g/dL (3.4-5.0); Calcium 7.5 mg/dL (8.5-10.1); Magnesium 2.1 mg/dL (1.6-2.6); Potassium 3.4 mmol/L (3.5-5.1)
[2018-07-22 08:44] LABS: BUN/Creatinine Ratio 47.7; Phosphorus 2.3 mg/dL (2.5-4.90); Total Protein 4.5 g/dL (6.4-8.2)
[2018-07-22 09:00] VITALS: BP 116/65
--- NOTE | 2018-07-22 09:37 | NUR ---
NO IV ACCESS BOTH IV'S TO RIGHT ARM INFILTRATED.
[2018-07-22] MEDS ORDERED: POTASSIUM PHOSP 22MEQ(15MMOLE) in NS 100 ML IV ONE (10:00)
[2018-07-22] MEDS ORDERED: POTASSIUM EFFERVESENT TAB 25 MEQ PO ONE (10:00)
[2018-07-22] MEDS: PANTOPRAZOLE 40 MG/10 ML VIAL IV SCH (10:00)
[2018-07-22] MEDS: SODIUM CHLORIDE 0.9% 1,000 ML IV SCH (10:18)
[2018-07-22 11:46] VITALS: BP 103/46
--- NOTE | 2018-07-22 17:38 | NUR ---
Discharge instructions given as ordered. Encourage to follow up with PMD as instructed. All questions and concerns addressed. Patient verbalized understanding.Patient continued to refuse hospice services and is considering home health Patient taken to vehicle via wheelchair with all personal belongings, accompanied by staff and family member. No distress noted at time of departure.
[2018-07-22] MEDS ORDERED: PPN PER PHARMACY IV NR ×12 (20:00)
== END 2018-07-22 16:30 | disposition home health service (06) | DRG 281 ==
LOC: EDBD 15:27 → ER 15:41 → OVERFLOW 21:36 → WEST WING 07-16 20:17
PROVIDERS: ADMIT Nurse Practitioner Family; ATTEND Internal Medicine
PROC: 3E0336Z Introduction of Nutritional Substance into Peripheral Vein, Percutaneous Approach (ICD-10-PCS; principal; 2018-07-19)
DX: C25.9 Malignant neoplasm of pancreas, unspecified (principal); E43 Unspecified severe protein-calorie malnutrition; C78.7 Secondary malignant neoplasm of liver and intrahepatic bile duct; E86.0 Dehydration; E11.9 Type 2 diabetes mellitus without complications; E83.39 Other disorders of phosphorus metabolism; E83.51 Hypocalcemia; E87.6 Hypokalemia; G89.3 Neoplasm related pain (acute) (chronic); E89.0 Postprocedural hypothyroidism; I10 Essential (primary) hypertension; K21.9 Gastro-esophageal reflux disease without esophagitis; Z85.07 Personal history of malignant neoplasm of pancreas; Z90.49 Acquired absence of other specified parts of digestive tract; Z88.0 Allergy status to penicillin; Z88.2 Allergy status to sulfonamides; Z88.8 Allergy status to other drugs, medicaments and biological substances; Z88.1 Allergy status to other antibiotic agents; Z91.041 Radiographic dye allergy status; Z79.899 Other long term (current) drug therapy; Z68.1 Body mass index [BMI] 19.9 or less, adult
CPT/HCPCS: 36415; 74176; 80048; 80053; 81001; 82040; 82150; 82962; 83036; 83690; 83735; 84100; 84478; 85025; 87081; 93005; 96374; C9113; G0378; J1815; J2001; J2405; J3480; J7060; Q0162